=== PATIENT | female | born 1970 | race Caucasian/White ===

== ENCOUNTER → 2017-08-31 | Outpatient (CLI) | payer OTHER ==
--- NOTE | 2017-09-01 10:34 | Diagnostic Imaging Report ---
Bilateral screening mammogram 2D views with tomosynthesis The current study was also evaluated with a Computer Aided Detection (CAD) system. Indication: Screening. No current complaints stated on the questionnaire. COMPARISON: 09/19/15. FINDINGS: The breasts are composed of heterogeneously dense parenchyma which may decrease mammographic sensitivity. Allowing for technique and positional differences, no suspicious change is seen. IMPRESSION: Dense breasts with no definite change. ACR BI-RADS Category 2: Benign findings. Result letter will be mailed to the patient. Note: At least 10% of breast cancer is not imaged by mammography. Dictated by: Dictated on workstation # [id number]
== END ==
LOC: RAD 09:24
PROVIDERS: ATTEND Obstetrics & Gynecology
DX: Z12.31 Encounter for screening mammogram for malignant neoplasm of breast (principal)
CPT/HCPCS: 77067

== ENCOUNTER → 2018-09-09 | Outpatient (CLI) | payer OTHER ==
--- NOTE | 2018-09-09 17:36 | Diagnostic Imaging Report ---
INDICATION: Routine screening. COMPARISON: Comparison is made with prior mammograms from 08/31/2017 and 09/19/2015. TECHNIQUE: 2D and 3D bilateral screening mammography was performed with computer-aided detection (CAD) system. FINDINGS: Both breasts are heterogeneously dense, limiting the sensitivity of mammography. There is a density in the posterior right breast at the nipple line on the CC view and projected slightly inferior on the MLO view. Additional views are recommended. The left breast is unremarkable. No suspicious calcifications are seen. The axillae are unremarkable. IMPRESSION: Right breast density. Additional views are recommended for further evaluation. ACR BI-RADS Category 0: Incomplete. (Needs additional imaging evaluation). Result letter will be mailed to the patient. Note: At least 10% of breast cancer is not imaged by mammography. Dictated by: Dictated on workstation # [id number]
== END ==
LOC: RAD 08:24
PROVIDERS: ATTEND Obstetrics & Gynecology
DX: Z12.31 Encounter for screening mammogram for malignant neoplasm of breast (principal); R92.8 Other abnormal and inconclusive findings on diagnostic imaging of breast
CPT/HCPCS: 77067

== ENCOUNTER → 2018-09-22 | Outpatient (CLI) | payer OTHER ==
--- NOTE | 2018-09-22 09:04 | Diagnostic Imaging Report ---
INDICATION: Right breast density. Patient presents for additional views. COMPARISON: Screening study of 09/09/2018. TECHNIQUE: Unilateral right 2D and 3D diagnostic mammography was performed with CAD including a conventional 90 degree lateral view as well as spot compression CC and MLO views. FINDINGS: The right breast is heterogeneously dense. There are no abnormalities identified on the conventional and 90 degree lateral and spot compression CC views. There is some questionable mild nodularity at the nipple line on the spot compression MLO view approximately 4 cm from the nipple. Further evaluation with ultrasound is recommended. No other abnormalities are seen. IMPRESSION: Persistent slightly nodular density at the nipple line on the spot compression MLO view, as described, 4 cm from the nipple. Further evaluation with ultrasound is recommended. ACR BI-RADS Category 0: Incomplete. (Needs additional imaging evaluation). Result letter will be mailed to the patient. Note: At least 10% of breast cancer is not imaged by mammography. Dictated by: Dictated on workstation # [id number]
--- NOTE | 2018-09-22 09:10 | Diagnostic Imaging Report ---
INDICATION: Abnormal mammogram. This study is performed for further evaluation. COMPARISON: Correlation is made with the screening mammogram from 09/09/2018 and the diagnostic mammogram from 09/22/2018. FINDINGS: Multiple small cysts are identified in the right breast with the largest in the 12 o'clock retroareolar location measuring approximately 7 mm x 6 mm in size. There is another hypoechoic nodule at the 3 o'clock location of the right breast 1 cm from the nipple measuring approximately 6 mm x 4 mm. This may represent a small cyst or lymph node. No other abnormality is detected. IMPRESSION: Benign appearing sonographic findings in the right breast. The patient may return to routine annual screening mammography. ACR BI-RADS Category 2: Benign findings. Dictated by: Dictated on workstation # [id number]
== END ==
LOC: RAD 07:59
PROVIDERS: ATTEND Obstetrics & Gynecology
DX: R92.2 Inconclusive mammogram (principal)